=== PATIENT | male | born 1990 | race Caucasian/White ===

== ENCOUNTER 2020-10-13 01:19 | Emergency (ER) | payer SELFPAY ==
[~2020-10-13] VITALS: Ht 162.6 cm; Wt 63.5 kg
[2020-10-13 01:22] VITALS: BP 113/67
--- NOTE | 2020-10-13 01:22 | NUR ---
TO CHAIR C , BROUGHT IN BY P FOR PREBOOK
--- NOTE | 2020-10-13 01:58 | NUR ---
PATIENT BIB [facility]. PATIENT EXAMINED BY DR. CHARLES. PATIENT MEDICALLY CLEARED AND RELEASED IN CUSTODY IN STABLE CONDITION. ORIGINAL PRE-BOOK FORM GIVEN TO OFFICER SUNDAY, #[id number].
== END 2020-10-13 01:58 ==
LOC: MED 01:19
DX: Z02.89 Encounter for other administrative examinations (principal); V98.8XXA Other specified transport accidents, initial encounter; Y93.89 Activity, other specified; Y92.89 Other specified places as the place of occurrence of the external cause; Y99.8 Other external cause status
CPT/HCPCS: 99283